=== PATIENT | female | born 1960 | race Caucasian/White ===

== ENCOUNTER 2017-05-26 17:03 | Emergency (ER) | payer OTHER ==
[~2017-05-26] VITALS: Ht 154.9 cm; Wt 70.1 kg
[2017-05-26 17:06] VITALS: TEMP 36.7; Ht 154.9 cm; Wt 70.1 kg
[2017-05-26] MEDS ORDERED: PROPARACAINE HCL 0.5% OP SOLN 15 ML BTL ONE (17:13)
[2017-05-26] MEDS ORDERED: PROB1CAP6 PO (17:48)
[2017-05-26] MEDS ORDERED: OMEG12006 PO (17:48)
[2017-05-26] MEDS ORDERED: CYAN100020 PO (17:48)
[2017-05-26] MEDS ORDERED: CALC-574 PO (17:48)
[2017-05-26] MEDS ORDERED: VALA1TAB31 PO (17:48)
[2017-05-26 17:52] VITALS: BP 145/80; PULSE 67; O2SAT 96
--- NOTE | 2017-05-26 23:35 | EMERGENCY ROOM VISIT NOTE ---
ED Visit Note First contact with patient: 17:10 Chief Complaint: Rash. History of Present Illness: Ms. Templeton is a 56-year-old white female who ambulates into the ED accompanied by her complaining of shingles. Patient reports she was seen at the [facility] urgent care clinic 2 days ago for a facial rash in the ophthalmic branch of the right facial nerve. They felt the rash was consistent with herpes zoster and she was put on antiviral medication. She reports a scraping was performed and tested; she reports she was called today to confirm that she did have herpes zoster. She was encouraged to go to the emergency department for an eye examination. Currently patient's only complaint is mild tearing from the right eye. She does report she noted some tingling over the upper portion of the upper eyelid on the right also today, but no fritz pain. She denies fevers, chills, sweats, other skin eruptions, other skin color changes, light sensitivity, visual changes, facial numbness, difficulty blinking/closing her eye, facial droop. Review of Systems: As noted above in history of present illness. Past Medical History: As noted above, unspecified stomach disorder, status post cardiac ablation, hysterectomy and unspecified knee surgery. Current Medications: Medications Dose Route/Sig Max Daily Dose Days Date Category Dose Instructions Vitamin B12 (Cyanocobalamin) 1,000 Mcg Tab 1,000 Mcg PO DAILY 05/26/17 Reported Denver 3 (Denver-3 Fatty Acids) 1 Cap Cap 1 Cap PO DAILY 05/26/17 Reported Probiotic Acidophilus (Probiotic Product) 1 Cap Cap 2 Cap PO DAILY 05/26/17 Reported Calcium 600+D3 600-400 mg-Unit (Calcium Carbonate-Cholecalcife) 1 Tab Tab 1 Tab PO DAILY 05/26/17 Reported Valtrex (Valacyclovir Hcl) 1 Gm Tab 1 Gm PO TID 7 05/26/17 Reported PRESCRIBED 05/25/2017, TAKE DIRECTED UNTIL GONE Allergies to Medications: Sulfa, decongestants, penicillin and prednisone. Social History: Patient is currently employed; she lives with her and feels safe in her home environment; she denies tobacco and alcohol use. Physical Examination: Vital Signs: Date Time Temp Pulse Resp B/P (MAP) Pulse Ox O2 Delivery O2 Flow Rate FiO2 05/26/17 17:52 67 18 145/80 96 05/26/17 17:06 36.7 64 18 143/83 96 Room Air GENERAL: 56-year-old female in mild due to symptoms, nontoxic-appearing, afebrile and hemodynamically stable. NEUROLOGICAL: Awake, alert and oriented to person, place and time. Answering questions appropriately and following commands. Normal gait. Good hand eye coordination. No focal motor or sensory deficits. SKIN: Warm, dry and pink. Face: Right facial nerve ophthalmic distribution shows a herpes zoster-like lesions extending to the upper portion of the upper eyelid. HEENT: Atraumatic and normocephalic. PERRLA. EOMI without nystagmus. Sclera white and conjunctiva pink with no drainage. No foreign bodies were noted under the eyelids are embedded in the cornea. The anterior chamber was clear. A slit lamp examination was performed with staining and shows no corneal abrasions or dendritic lesions. Visual Acuity: 20/25 bilaterally with corrective lenses. No drainage from naris. Oral cavity moist and pink. Airway is patent. Speech normal. No lymphadenopathy. ED Course: Patient is assessed as noted above. Patient's medication list was reviewed. Alcaine was used to anesthetize the eyes for examination. Patient was educated about today's findings and instructed on her treatment plan ; she verbalized understanding and agreement with this plan. Clinical Impression: Herpes zoster. Disposition: Patient discharged home in stable condition accompanied by her ; prior to departure she was reassessed and subjectively reported she was feeling much better. Plan: Patient was encouraged to continue her current medications as prescribed. Patient was encouraged to contact her the [facility] Sunday morning and inform them of today's ED visit and request follow-up care and treatment. Patient was encouraged return ED for eye pain, visual changes, fevers or any new /concerning symptoms.
== END 2017-05-26 17:52 | disposition home or self-care (01) ==
LOC: C.EDB 17:05 → C.EDD 17:52
DX: B02.9 Zoster without complications (principal); Z90.710 Acquired absence of both cervix and uterus